=== PATIENT | female | born 1985 | race African-American/Black ===

== ENCOUNTER 2016-12-23 04:09 | Emergency (ER) | payer OTHER ==
[~2016-12-23] VITALS: Ht 162.6 cm; Wt 132.4 kg
[~2016-12-23 04:09] MED LIST: HYDR-971 PO; NAPR500T8 PO; OXYC-323 PO
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
[2016-12-23 06:08] VITALS: BP 146/95
== END 2016-12-23 04:45 | disposition home or self-care (01) ==
LOC: ER 04:09 → EEVIPCON 04:09 → ER 04:45
DX: H92.01 Otalgia, right ear (principal); R68.84 Jaw pain
CPT/HCPCS: 99283

== ENCOUNTER 2021-07-19 11:56 | Emergency (ER) | payer SELFPAY ==
[~2021-07-19] VITALS: Ht 162.6 cm; Wt 136.8 kg
[~2021-07-19 11:56] MED LIST changes: +HYDR-3164 PO; -HYDR-971 PO; -OXYC-323 PO; +OXYC1TAB15 PO
[2021-07-19 13:30] VITALS: BP 139/93
--- NOTE | 2021-07-19 13:53 | PHYS DOC ---
Past Medical History Past Medical History: Anemia ([facility],JORDY M SALES INTERN) Past Surgical History: No Surgical History ([facility],[employer]ORDY M SALES INTERN) Smoking Status: Current Every Day Smoker Alcohol Use: Heavy Drug Use: None [facility] General Adult EDM: Chief Complaint: OTHER COMPLAINTS HPI: HPI: Patient is a 35 year old female who presents with sore throat, runny nose, cough, headache for the last 3 days. She states she was around somebody on Monday at work that had Covid. She is a smoker, has had a cholecystectomy, drinks every other day, anemia. No vaccinations. Rates her discomfort at a 7 out of 10. Denies chest pain, syncope, dizziness, abdominal pain, nausea, vomiting, diarrhea, cough, shortness of breath. ([facility],JORDY SALES INTERN) Review of Systems: Review of Systems: Constitutional: Denies fever or chills. [] Eyes: Denies change in visual acuity. [] HENT: Denies nasal congestion or sore throat. [] Respiratory: Denies cough or shortness of breath. [] Cardiovascular: Denies chest pain or edema. [] GI: Denies abdominal pain, nausea, vomiting, bloody stools or diarrhea. [] : Denies dysuria. [] Musculoskeletal: Denies back pain or joint pain. [] Integument: Denies rash. [] Neurologic: Denies headache, focal weakness or sensory changes. [] Endocrine: Denies polyuria or polydipsia. [] Lymphatic: Denies swollen glands. [] Psychiatric: Denies depression or anxiety. [] ([facility],JORDY SALES INTERN) Heart Score: C/O Chest Pain: No ([facility],[employer]ORD[employer] SALES INTERN) Allergies: Allergies: Allergies Coded Allergies Type Severity Reaction Last Updated Verified No Known Drug Allergies 04/10/15 No ([facility]) Physical Exam: PE: Constitutional: Well developed, well nourished, no acute distress, non-toxic appearance. [] HENT: Normocephalic, atraumatic, bilateral external ears normal, oropharynx moist, no oral exudates, nose normal. Postnasal drip. [] Eyes: PERRLA, EOMI, conjunctiva normal, no discharge. [] Neck: Normal range of motion, no tenderness, supple, no stridor. [] Cardiovascular:Heart rate regular rhythm, no murmur [] Lungs & Thorax: Bilateral breath sounds clear to auscultation [] Abdomen: Bowel sounds normal, soft, no tenderness, no masses, no pulsatile masses. [] Skin: Warm, dry, no erythema, no rash. [] Back: No tenderness, no CVA tenderness. [] Extremities: No tenderness, no cyanosis, no clubbing, ROM intact, no edema. [] Neurologic: Alert and oriented X 3, normal motor function, normal sensory function, no focal deficits noted. [] Psychologic: Affect normal, judgement normal, mood normal. [] (JORDY ERICKSON APRN) EKG: EKG: [] (JORDY ERICKSON APRN) Radiology/Procedures: Radiology/Procedures: [] (JORDY ERICKSON APRN) Course & Med Decision Making: Course & Med Decision Making Pertinent Labs and Imaging studies reviewed. (See chart for details) COVID-19 CRITERIA: The patient was evaluated during the global COVID-19 pandemic, and that diagnosis was suspected/considered upon their initial presentation. Their evaluation, treatment and testing was consistent with current guidelines for patients who present with complaints or symptoms that may be related to COVID-19. See HPI. Alert and oriented x4. Ambulatory steady gait. Speaks in full clear sentences. Afebrile. Skin pink warm and dry. Cap refill less than 2 seconds. Lungs are clear to auscultation all lobes. Vital signs within normal limits. Strep negative. [] (JORDY ERICKSON APRN) Course & Med Decision Making Reviewed chart. Rapid Covid and strep negative. COVID PCR and throat culture pending. (DANIEL VARGAS MD) Dragderek Disclaimer: Dragon Disclaimer: This electronic medical record was generated, in whole or in part, using a voice recognition dictation system. (JORDY ERICKSON APRN) COVID-19 Patient Risks: Age 65 or older: No Sign of co-morbidity: Yes Exp to person + for COVID: Yes Exp to PUI: Yes Travel from affected area: No Lower respiratory symptoms: Yes Fever: No Other: Yes (sore throat) (JORDY ERICKSON APRN) PPE Use: Full PPE with N95 mask or PAPR: Yes (JORDY ERICKSON APRN) Departure Departure Impression: Primary Impression: Person under investigation for COVID-19 Additional Impressions: Sore throat Rhinitis Qualified Codes: J31.0 - Chronic rhinitis Disposition: 01 HOME / SELF CARE / HOMELESS Condition: STABLE Referrals: NO PCP (PCP) Patient Instructions: Sore Throat Additional Instructions: Follow-up with primary care provider if needed. Quarantining to get your Covid results. Take allergy medication to help with your nasal congestion and runny nose. Drink plenty of water. Take Tylenol or ibuprofen to help with pain. You have been tested for or diagnosed with COVID-19. It is an infection caused by a new type of coronavirus. COVID-19 will cause cold-like or mild flu symptoms in most. It can cause more severe symptoms like problems breathing in some. There is no treatment for COVID-19. The body will clear the infection over time. Self-care will help to ease discomfort. Steps to Take: Self-Care Rest as needed. Healthy habits may help you feel better. Steps include: Choose healthy foods including fruits and vegetables. Drink water throughout the day. Get plenty of sleep each night. If you smoke, try to quit. It may ease breathing. Avoid alcohol. Keep Others Healthy The virus can spread to others. Droplets are released every time you sneeze or cough. The droplets can get into the mouth, nose, or eyes of people near you and lead to infection. To lower the chances of spreading COVID-19 to others: Stay at home until your doctor has said it is safe to leave. If you tested pos itive this will mean staying isolated until both of the following are true: At least 7 days have passed since the start of illness. You are free of fever for at least 72 hours without the use of medicine. During this time: - Avoid public areas, events, or transportation. Do not return to work or school until your doctor has said it is safe to do so. - Call ahead if you need to go to a medical center. Let them know you may have COVID-19. It will help them guide you where to go. They may also ask you to wear a facemask when you come to the office. - If you call for emergency medical services, let them know you may have COVID- 19. While at home: - Try to avoid close contact with others. Stay about 6 feet away. - If possible, spend most of your time in a separate room from others. - Use a face mask if you will be in close contact with others such as sharing a room or vehicle. - Have someone wipe down common surfaces in the home. Use household child development instructor every day on areas like doorknobs, counters, or sinks. - Cough or sneeze into a tissue. Throw the tissue away right after use. If a tissue is not available, cough or sneeze into your elbow. - Wash your hands often. Wash them after sneezing or coughing. Use soap and water and wash for at least 20 seconds. Alcohol based hand shirt cleaner can be used if soap and water is not available. - Do not prepare food for others. Avoid sharing personal items like forks, spoons, or toothbrushes. - Avoid close contact with pets while you are sick. There is no evidence of the virus passing to pets. This is a safety step until more is known about this virus. Isolation can be frustrating. Social interaction can help. Keep in touch with friends and family through phone and tech options. You can still interact with others in your home, just keep a safe distance of about 6 feet. Follow-up: Your doctors office will check in with you to see if there are any changes in your health. You may be asked to keep track of symptoms to share with them. They will also let you know when you are clear to be in public again. Problems to Look Out For: Contact your doctor if your recovery is not going as you expect. Get emergency care if you have problems such as: - Trouble breathing - Nonstop chest pain or pressure - Changes in awareness, confusion, or problems waking - Lips or face have bluish color - Worsening of symptoms If you think you have an emergency, call for emergency medical services right away. As taken from [facility] JORDY ERICKSON APRN Jul 19, 2021 13:53 DANIEL VARGAS MD Jul 19, 2021 19:00
--- NOTE | 2021-07-20 15:29 | NUR ---
IP: Attempted to contact opt concerning covid results. No answer, left a voicemail to return the call. Addendum: 07/20/21 at 1540 by DG PADILLA RN Pt returned the call. Informed her of negative covid test. Pt verbalized understanding.
== END 2021-07-19 15:14 | disposition home or self-care (01) ==
LOC: ER 11:56
DX: J02.9 Acute pharyngitis, unspecified (principal); J31.0 Chronic rhinitis; Z20.822 Contact with and (suspected) exposure to COVID-19; F17.200 Nicotine dependence, unspecified, uncomplicated
CPT/HCPCS: 87070; 87426; 87880; 99283; U0003; U0005